=== PATIENT | female | born 1970 | race Caucasian/White ===

== ENCOUNTER 2023-04-21 10:36 | Emergency (ER) | payer BC ==
[~2023-04-21] VITALS: Ht 172.7 cm; Wt 65.8 kg
[2023-04-21] MEDS ORDERED: NITR100C11 PO (10:54)
[2023-04-21] MEDS ORDERED: ATOM60CA PO (10:54)
[2023-04-21 11:33] LABS: BASOPHILS # (AUTO) 0.1 K/UL (0.0-0.2); EOSINOPHILS # (AUTO) 0.3 K/uL (0.0-0.7); EOSINOPHILS % (AUTO) 5.6 % (0.0-7.0); HEMATOCRIT 41.1 % (31.2-41.9); HEMOGLOBIN 13.7 g/dL (10.9-14.3); LYMPHOCYTES # (AUTO) 1.6 K/uL (0.8-4.8); MEAN CORPUSCULAR HEMOGLOBIN 28.7 uug (24.7-32.8); MEAN CORPUSCULAR HGB CONC 33 g/dL (32.3-35.6); MEAN CORPUSCULAR VOLUME 86.3 fL (75.5-95.3); MONOCYTES # (AUTO) 0.3 K/uL (0.1-1.30); MONOCYTES % (AUTO) 4.4 % (0.0-11.0); NEUTROPHILS # (AUTO) 3.8 K/uL (1.8-8.9); PLATELET COUNT (AUTO) 291 K/uL (179-408); RED BLOOD CELL COUNT(AUTO) 4.76 MIL/uL (3.63-4.92); RED CELL DISTRIBUTION WIDTH 13.5 % (12.3-17.7); WHITE BLOOD COUNT (AUTO) 6.1 K/uL (3.8-11.8)
[2023-04-21 11:34] LABS: *CLARITY,URINE SLIGHTLY CLOUDY (CLEAR); *COLOR,URINE RED (YELLOW); *KETONES,URINE TRACE (NEGATIVE); *PROTEIN,URINE 2+ (NEGATIVE); LEUKOCYTE ESTERASE ,URINE 3+ (NEGATIVE); NITRITE, URINE POSITIVE (NEGATIVE)
[2023-04-21 11:43] LABS: CALCIUM 8.7 mg/dL (8.5-10.1); CREATININE 0.9 mg/dL (0.6-1.3)
[2023-04-21 12:36] LABS: DIFFERENTIAL COMMENT 1
[2023-04-21 12:57] LABS: *BLOOD, URINE TRACE (NEGATIVE); UGLUCOSE 1+ (NEGATIVE)
[2023-04-21 12:58] LABS: *BILIRUBIN,URIN 1+ (NEGATIVE)
[2023-04-21] MEDS ORDERED: CEFTRIAXONE /D5W 50ML IVPB **ER PYXIS IV ONE (13:28)
[2023-04-21] MEDS: CEFTRIAXONE 1 G in IV DEXTROSE 5% 50 ML IV ONE (13:35)
[2023-04-21] MEDS ORDERED: FLAS1KIT2 TP (14:02)
[2023-04-21] MEDS ORDERED: FLAS1EAC2 TP (14:02)
[2023-04-21] MEDS ORDERED: CEFD300C3 PO (14:02)
[2023-04-21] MEDS ORDERED: MAGNESIUM HYDROXIDE 30 ML LIQUID UDC ONE (14:05)
[2023-04-21] MEDS: MAGNESIUM HYDROXIDE 30 ML LIQUID UDC PO ONE (14:05)
[2023-04-21 14:10] LABS: BACTERIA,URINE FEW /HPF (NONE SEEN)
[2023-04-21] MEDS ORDERED: KETO10TA2 PO (14:12)
[2023-04-21] MEDS ORDERED: KETOROLAC TROMETHAMINE 30 MG INJ ONE (14:18)
[2023-04-21] MEDS ORDERED: CIPR-262 PO (14:18)
[2023-04-21] MEDS: KETOROLAC TROMETHAMINE 30 MG INJ IVP ONE (14:19)
[2023-04-21 15:08] VITALS: BP 155/88; TEMP 98.3; O2SAT 97
== END 2023-04-21 14:25 | disposition home or self-care (01) ==
LOC: ER 10:36
DX: N39.0 Urinary tract infection, site not specified (principal); N20.1 Calculus of ureter; K59.00 Constipation, unspecified; Z79.899 Other long term (current) drug therapy; Z60.2 Problems related to living alone
CPT/HCPCS: 99285; 74176; 96374; 96375; 80048; 81001; 85025; 36415; J0696; J1885; A4606; A4663